=== PATIENT | female | born 1960 | race Caucasian/White ===

== ENCOUNTER 2016-09-23 12:22 | Emergency (ER) | payer OTHER ==
[~2016-09-23] VITALS: Ht 177.8 cm; Wt 58.0 kg
[~2016-09-23 12:22] MED LIST: CYCL-36 PO; IBUP800 PO; Z.0.NO CURRENT MEDS
[2016-09-23 12:29] VITALS: BP 125/85; PULSE 82; RESP 16; TEMP 98.3; O2SAT 97
[2016-09-23] MEDS ORDERED: CLINDAMYCIN INJ 600 MG in SODIUM CHLORIDE 0.9% INJ 100 ML IV ONE (13:15)
--- NOTE | 2016-09-23 13:17 | PD ---
HPI Chief Complaint: Bite or Sting Time Seen by Provider: 13:04 Travel History International Travel<30 days: No Contact w/Intl Traveler<30days: No Traveled to known affect area: No History of Present Illness HPI 56yo F with no PMH present to the ED with c/o left elbow pain and swelling since last night. Pt was sleeping in an RV last night and had 2 bites on the left elbow, unsure if it is a mosquitoe or insect. Redness, edema has been spreading. Denies any fever, trauma, chest pain, sob, n/v, abdominal pain, focal weakness or numbness. PFSH Past Medical History Hx Anticoagulant Therapy: No Diabetes: No Diminished Hearing: No Tetanus Vaccination: > 5 Years Influenza Vaccination: No ?: Not Menopausal: Yes Social History Alcohol Use: Yes (3-4 X WEEKLY) Tobacco Use: Yes (1 PPD) Substance Use: No Allergies-Medications (Allergen,Severity, Reaction): Coded Allergies: No Known Allergies (Verified , 09/23/16) Reported Meds & Prescriptions Reported Meds & Active Scripts Active No Active Prescriptions or Reported Medications Review of Systems Except as stated in HPI: all other systems reviewed are Neg Physical Exam Narrative GENERAL: 56yo F not in distress. SKIN: Focused skin assessment warm/dry. HEAD: Atraumatic. Normocephalic. EYES: Pupils equal and round. No scleral icterus. No injection or drainage. ENT: No nasal bleeding or discharge. Mucous membranes pink and moist. NECK: Trachea midline. No JVD. CARDIOVASCULAR: Regular rate and rhythm. No murmur appreciated. RESPIRATORY: No accessory muscle use. Clear to auscultation. Breath sounds equal bilaterally. GASTROINTESTINAL: Abdomen soft, non-tender, nondistended. Hepatic and splenic margins not palpable. MUSCULOSKELETAL: Left elbow: +14cmby 15cm erythema and edema over joint with mild streaking up left humerus. Sensation intact. FROM in left elbow. Distal pulses intact. NEUROLOGICAL: Awake and alert. No obvious cranial nerve deficits. Motor grossly within normal limits. Normal speech. PSYCHIATRIC: Appropriate mood and affect; insight and judgment normal. Data Data Last Documented VS Vital Signs Date Time Temp Pulse Resp B/P Pulse Ox O2 Delivery O2 Flow Rate FiO2 09/23/16 12:29 98.3 82 16 125/85 97 Orders Basic Metabolic Panel (Bmp) (09/23/16 13:11) Complete Blood Count With Diff (09/23/16 13:11) Clindamycin Inj (Cleocin Inj) (09/23/16 13:15) Elbow, Limited (Ap&Lat) (09/23/16 ) Ketorolac Inj (Toradol Inj) (09/23/16 14:15) Labs Laboratory Tests Test 09/23/16 13:20 White Blood Count 9.9 TH/MM3 Red Blood Count 4.53 MIL/MM3 Hemoglobin 13.1 GM/DL Hematocrit 38.5 % Mean Corpuscular Volume 84.8 FL Mean Corpuscular Hemoglobin 28.9 PG Mean Corpuscular Hemoglobin 34.1 % Concent Red Cell Distribution Width 13.2 % Platelet Count 259 TH/MM3 Mean Platelet Volume 7.4 FL Neutrophils (%) (Auto) 64.0 % Lymphocytes (%) (Auto) 22.9 % Monocytes (%) (Auto) 7.9 % Eosinophils (%) (Auto) 4.0 % Basophils (%) (Auto) 1.2 % Neutrophils # (Auto) 6.3 TH/MM3 Lymphocytes # (Auto) 2.3 TH/MM3 Monocytes # (Auto) 0.8 TH/MM3 Eosinophils # (Auto) 0.4 TH/MM3 Basophils # (Auto) 0.1 TH/MM3 CBC Comment DIFF FINAL Differential Comment Sodium Level 143 MEQ/L Potassium Level 3.5 MEQ/L Chloride Level 107 MEQ/L Carbon Dioxide Level 28.7 MEQ/L Anion Gap 7 MEQ/L Blood Urea Nitrogen 7 MG/DL Creatinine 0.49 MG/DL Estimat Glomerular Filtration 132 ML/MIN Rate Random Glucose 87 MG/DL Calcium Level 8.9 MG/DL [facility] Medical Decision Making Medical Screen Exam Complete: Yes Emergency Medical Condition: Yes Interpretation(s) Laboratory Tests Test 09/23/16 13:20 White Blood Count 9.9 TH/MM3 (4.0-11.0) Red Blood Count 4.53 MIL/MM3 (4.00-5.30) Hemoglobin 13.1 GM/DL (11.6-15.3) Hematocrit 38.5 % (35.0-46.0) Mean Corpuscular Volume 84.8 FL (80.0-100.0) Mean Corpuscular Hemoglobin 28.9 PG (27.0-34.0) Mean Corpuscular Hemoglobin 34.1 % Concent (32.0-36.0) Red Cell Distribution Width 13.2 % (11.6-17.2) Platelet Count 259 TH/MM3 (150-450) Mean Platelet Volume 7.4 FL (7.0-11.0) Neutrophils (%) (Auto) 64.0 % (16.0-70.0) Lymphocytes (%) (Auto) 22.9 % (9.0-44.0) Monocytes (%) (Auto) 7.9 % (0.0-8.0) Eosinophils (%) (Auto) 4.0 % (0.0-4.0) Basophils (%) (Auto) 1.2 % (0.0-2.0) Neutrophils # (Auto) 6.3 TH/MM3 (1.8-7.7) Lymphocytes # (Auto) 2.3 TH/MM3 (1.0-4.8) Monocytes # (Auto) 0.8 TH/MM3 (0-0.9) Eosinophils # (Auto) 0.4 TH/MM3 (0-0.4) Basophils # (Auto) 0.1 TH/MM3 (0-0.2) CBC Comment DIFF FINAL Differential Comment Sodium Level 143 MEQ/L (136-145) Potassium Level 3.5 MEQ/L (3.5-5.1) Chloride Level 107 MEQ/L (98-107) Carbon Dioxide Level 28.7 MEQ/L (21.0-32.0) Anion Gap 7 MEQ/L (5-15) Blood Urea Nitrogen 7 MG/DL (7-18) Creatinine 0.49 MG/DL (0.50-1.00) Estimat Glomerular Filtration 132 ML/MIN Rate (>89) Random Glucose 87 MG/DL (74-106) Calcium Level 8.9 MG/DL (8.5-10.1) Last Impressions Elbow X-Ray 09/23/16 0000 Signed Impressions: Service Date/Time: Friday, September 23, 2016 13:32 - CONCLUSION: Soft tissue swelling without fracture. Russell Hastings MD Differential Diagnosis Cellulitis vs. allergic reaction vs. fracture Narrative Course 56yo well appearing female with cellulitis of left elbow that started yesterday. There are bite velasquez, likely bug bite. Labs reviewed, no leukocytosis. BMP unremarkable. Xray left elbow showed soft tissue swelling without fracture. VS stable. Pt given clindamycin and toradol IV. I marked the redness with a skin market and instructed pt to return to the ED immediately if the redness, pain or swelling worsens while on antibiotics. Return to the ED if symptoms worsen. Diagnosis Primary Impression: Cellulitis Qualified Code: L03.114 - Cellulitis of left upper extremity Patient Instructions: General Instructions Departure Forms: Tests/Procedures Additional Instructions: Please return to the ED immediately if symptoms worsen. Please take medications as instructed and follow up with PMD in 2-3 days. Med/Other Pt SpecificInfo: Prescription(s) given Scripts Ibuprofen 600 Mg [id number] Mg PO Q8HR PRN (PAIN) #20 TAB Ref 0 Prov:Krys Talley DO 09/23/16 Clindamycin 300 Mg [id number] Mg PO Q6H 10 Days Ref 0 Prov:Krys Talley DO 09/23/16 Disposition: 01 DISCHARGE HOME Condition: Stable Krys Talley DO September 23, 2016 13:17
[2016-09-23 13:33] LABS: AUTOMATED NEUTROPHIL # 6.3 TH/MM3 (1.8-7.7); BASOPHIL # 0.1 TH/MM3 (0-0.2); BASOPHIL % 1.2 % (0.0-2.0); EOSINOPHIL # 0.4 TH/MM3 (0-0.4); HEMATOCRIT 38.5 % (35.0-46.0); HEMO FLAGS DIFF FINAL; LYMPH % 22.9 % (9.0-44.0); LYMPHOCYTE # 2.3 TH/MM3 (1.0-4.8); MEAN CELL VOLUME 84.8 FL (80.0-100.0); MEAN CORPUSCULAR HEMOGLOBIN 28.9 PG (27.0-34.0); MEAN CORPUSCULAR HGB CONC 34.1 % (32.0-36.0); MONO % 7.9 % (0.0-8.0); PLATELET COUNT 259 TH/MM3 (150-450); RED BLOOD COUNT 4.53 MIL/MM3 (4.00-5.30); RED CELL DISTRIBUTION WIDTH 13.2 % (11.6-17.2); WHITE BLOOD COUNT 9.9 TH/MM3 (4.0-11.0)
[2016-09-23 13:41] LABS: POTASSIUM 3.5 MEQ/L (3.5-5.1)
--- NOTE | 2016-09-23 13:42 | RADHPO ---
EXAM DATE/TIME: 09/23/2016 13:32 [facility] COMPARISON: No previous studies available for comparison. INDICATIONS : Red, swollen, painful elbow today, no known injury MEDICAL HISTORY : None. SURGICAL HISTORY : None. ENCOUNTER: Initial ACUITY: 1 day PAIN SCORE: 5/10 LOCATION: Left elbow FINDINGS: Two view examination of the left elbow demonstrates soft tissue swelling without joint effusion, frac ture or dislocation. Bony mineralization is normal. CONCLUSION: Soft tissue swelling without fracture. Russell Hastings MD on September 23, 2016 at 13:39 Board Certified Radiologist. This report was verified electronically.
[2016-09-23 13:43] LABS: BICARBONATE 28.7 MEQ/L (21.0-32.0)
[2016-09-23] MEDS ORDERED: KETOROLAC TROMETHAMINE 30 MG/ML (IVP) VIAL IV PUSH ONE (14:15)
[2016-09-23] MEDS ORDERED: CLIN1CAP6 PO (14:37)
[2016-09-23] MEDS ORDERED: IBUP-232 PO (14:37)
[2016-09-23 14:41] VITALS: BP 136/86; PULSE 68; RESP 14; O2SAT 100
== END 2016-09-23 14:49 | disposition home or self-care (01) ==
LOC: PHED 12:22
DX: L03.114 Cellulitis of left upper limb (principal); F17.200 Nicotine dependence, unspecified, uncomplicated
CPT/HCPCS: 73070; 80048; 85025; 96365; 96375; 99283; J1885